=== PATIENT | female | born 1995 | race Caucasian/White ===

== ENCOUNTER 2025-03-02 22:41 | Emergency (ER) | payer MEDICAID ==
[~2025-03-02] VITALS: Ht 162.6 cm; Wt 91.0 kg
[2025-03-02 22:43] VITALS: O2SAT 97
[2025-03-02 23:19] VITALS: BP 138/77; PULSE 103; RESP 18; TEMP 37; O2SAT 98
[2025-03-03] MEDS: KETOROLAC 15MG/ML VIAL IM ONE (01:10)
[2025-03-03] MEDS: HYDROCODONE/ACETAMINOPHEN 5/325MG TABLET PO ONE (01:10)
[2025-03-03] MEDS ORDERED: HYDR-4001 MT (02:59)
[2025-03-03] MEDS ORDERED: NAPR-681 PO (02:59)
== END 2025-03-03 03:07 | disposition home or self-care (01) ==
LOC: ER 22:41
DX: S52.122A Displaced fracture of head of left radius, initial encounter for closed fracture (principal); S00.83XA Contusion of other part of head, initial encounter; S00.81XA Abrasion of other part of head, initial encounter; Z79.899 Other long term (current) drug therapy; W01.0XXA Fall on same level from slipping, tripping and stumbling without subsequent striking against object, initial encounter; Y93.89 Activity, other specified; Y92.89 Other specified places as the place of occurrence of the external cause; Y99.8 Other external cause status
CPT/HCPCS: 99283; 29105; 81025; 73080; 96372; J1885; A4565